=== PATIENT | male | born 1940 ===

== ENCOUNTER 2023-11-10 13:42 | Outpatient (REF) | payer MEDICARE, SELFPAY ==
[2023-11-10 14:14] LABS: Appearance Urine Turbid; Glucose Urine UA Negative (Negative); Leukocyte Esterase Urine Large (3+) (Negative); Nitrite Urine Positive (Negative); PH 6.5 (5.0-9.0); Specific Gravity - Urine 1.015 (1.005-1.025); UMIC TRIGGER UA YES; Urine Blood Large (3+) (Negative); Urine Ketones Negative (Negative); Urine Protein 30 (1+) mg/dL (Neg-Trace)
[2023-11-10 14:15] LABS: Color Urine Yellow
[2023-11-10 14:16] LABS: Bacteria Urine 4+ (None Seen); Hyaline Casts Urine 0-2 /LPF (0-2); RBC Urine >20 /HPF (0-2); Squamous Epithelial Cell Urine 0-2 /HPF (0-2); WBC Clumps Urine Present; WBC Urine >50 /HPF (0-5)
== END 2023-11-10 13:43 | disposition home or self-care (01) ==
LOC: HO.HVNA 13:42
PROVIDERS: Visit Provider Urology
DX: R31.9 Hematuria, unspecified (principal); N13.9 Obstructive and reflux uropathy, unspecified
CPT/HCPCS: 81001; 81003; 87086